=== PATIENT | male | born 1960 | race Caucasian/White ===

== ENCOUNTER → 2021-09-01 07:48 | Outpatient (CLI) | payer BC, SELFPAY ==
--- NOTE | ~2021-09-01 | XR_ITS ---
XR finger 1st RT min 2V DATE: 09/01/2021 08:14 INDICATION: Right thumb pain TECHNIQUE: 3 views COMPARISON: None FINDINGS: There is prominent osteoarthritic change at the first carpometacarpal joint. There is mild osteoarthritis at the first metacarpophalangeal joint. There is prominent osteoarthritic change at th e distal interphalangeal joint including joint space and prominent spurring. No fracture, dislocation, periosteal reaction or bone destruction is detected. IMPRESSION: Osteoarthritis at the first carpometacarpal, first metacarpophalangeal and interphalangea l joints Reviewed, dictated and finalized at location A. IMPRESSION: Osteoarthritis at the first carpometacarpal, first metacarpophalang eal and interphalangeal joints
== END ==
PROVIDERS: PCP Family Medicine; Visit Provider Physician Assistant
DX: M19.041 Primary osteoarthritis, right hand (principal)
CPT/HCPCS: 73140

== ENCOUNTER 2021-10-06 00:34 | Day surgery (SDC) | payer BC, SELFPAY ==
[2021-09-20 14:18] VITALS: BMI 24.4
[2021-10-06 08:33] VITALS: BP 108/69; PULSE 94; RESP 18; TEMP 36.3; O2SAT 99
[2021-10-06] MEDS: LACTATED RINGERS 1,000 ML 150 ML IV CONT (08:42)
--- NOTE | 2021-10-06 08:44 | WPDANESEPPF ---
Anes - Initial Pre Proc Eval Procedure: Operation Date: 10/06/21 09:30 Proposed Procedures p Screening Colonoscopy - Eloy Wagoner MD Date/Time: 10/06/21 08:44 Surgeon: Eloy Wagoner MD Pre Op Diagnosis: neoplasm screening Patient Data Age: 60 Gender: M Height: 1.75 m Weight: 72.6 kg Last Vital Signs Temp 36.3 C L 10/06/21 08:33 Pulse 94 10/06/21 08:33 Resp 18 10/06/21 08:33 BP 108/69 10/06/21 08:33 Pulse Ox 99 10/06/21 08:33 Allergies Allergy/AdvReac Type Severity Reaction Status Date / Time No Known Drug Allergies Allergy Unknown Unknown Verified 10/06/21 08:31 Home Medications Medication Instructions Recorded Confirmed Type pantoprazole 40 mg tablet,delayed 40 mg PO QAM #90 tablet 02/17/21 09/20/21 Rx release methylprednisolone 4 mg tablets in See Rx Instructions PO PER PKG DIR 09/05/21 Rx a dose pack #21 each Patient hx anesthesia problems: none Family hx anesthesia problems: none Results Review: All pre-operative results and documents have been reviewed as part of the pre-operative evaluation. [facility] Past Medical History Medical History Chronic GERD HLD (hyperlipidemia) IFG (impaired fasting glucose) Surgical History Surgical History History of carpal tunnel release Family History Family History Father Heart disease Father Family history of cardiovascular disease Social History Social History Alcohol intake: current Drinks per week: 2 Substance use: never Substance use type: does not use Living arrangements: with family Gender identity (if verbalized by the patient): Male Sexual Orientation (if Verbalized by the Patient): Straight or Heterosexual Spiritual care concerns: No Anes - Eval Final PreProcedure Day of Procedure 10/06/21 08:44 Patient weight: normal Heart: regular rate and rhythm Lungs: clear to auscultation Airway: Mallampati scale class II Neurological: alert and oriented Last oral intake: >/= 8 hours ASA classification: II Emergent: no Anesthetic plan: proceed Anesthesia type and monitoring: general GIVS and standard monitoring Results Review: All pre-operative results and documents have been reviewed as part of the pre-operative evaluation. Informed Consent: The patient's anesthetic plan and its attendant risks and benefits were discussed with the patient/family/POA. Questions were solicited and answers provided to the satisfaction of the patient/family/POA.
--- NOTE | 2021-10-06 08:56 | PM.HPGS ---
History of Present Illness History of Present Illness Consent: Risks, benefits, and alternatives have been discussed and questions answered. Patient agrees to proceed with procedure. Chief complaint: neoplasm screening Narrative: Cuco Bentley is a 60 year old male here for screening colonoscopy, last time 11 years ago. Review of Systems Constitutional: Constitutional: Denies headache(s) and Denies weakness Eyes: Eyes: Denies blurry vision ENT: Reports Normal hearing present, Denies headache(s) and Denies neck pain Cardiovascular: Cardiovascular: Denies chest pain and Denies dyspnea Respiratory: Respiratory: Denies dyspnea Gastrointestinal: Gastrointestinal: Reports no additional gastrointestinal complaints Genitourinary: Genitourinary: Denies dysuria Musculoskeletal: Musculoskeletal: Denies neck pain Integumentary/Breasts: Skin/Breast: Denies dry skin Neurologic: Reports Normal hearing present, Denies headache(s) and Denies weakness Psychiatric: Psychiatric: Denies anxiety Endocrine: Endocrine: Denies change in body appearance Hematologic/Lymphatic: Hematologic/Lymphatic: Denies easy bleeding Allergic/Immunologic: Allergic/Immunologic: Denies urticaria PMFSH Past Medical History Medical History (Updated 10/06/21 @ 08:56 by Eloy Wagoner MD) Chronic GERD Colon cancer screening HLD (hyperlipidemia) IFG (impaired fasting glucose) Surgical History Surgical History History of carpal tunnel release Family History Family History Father Heart disease Father Family history of cardiovascular disease Social History Social History Alcohol intake: current Drinks per week: 2 Substance use: never Substance use type: does not use Living arrangements: with family Gender identity (if verbalized by the patient): Male Sexual Orientation (if Verbalized by the Patient): Straight or Heterosexual Spiritual care concerns: No Meds Home Medications and Allergies Home Medications Medication Instructions Recorded Confirmed Type pantoprazole 40 mg tablet,delayed 40 mg PO QAM #90 tablet 02/17/21 09/20/21 Rx release methylprednisolone 4 mg tablets in See Rx Instructions PO PER PKG DIR 09/05/21 Rx a dose pack #21 each Allergies Allergy/AdvReac Type Severity Reaction Status Date / Time No Known Drug Allergies Allergy Unknown Unknown Verified 10/06/21 08:31 Vital Signs Vital Signs - 24 hr 10/06/21 08:33 Temperature 97.3 F L Pulse Rate 94 Respiratory Rate 18 Blood Pressure 108/69 Pulse Oximetry 99 Exam Const: General: comfortable and no acute distress HENMT: General nose exam: Normal nares present Eyes: General: appearance normal, both eyes and all related structures Neck: Neck: no JVD Resp: Auscultation: clear to auscultation bilaterally Cardio: Rate: regular rate Rhythm: regular rhythm GI: Inspection: non-distended GI Palp: Yes Soft to palpation Skin: General skin exam: normal color Neuro: General: gait normal Speech: normal speech Extrem: General: normal to inspection Psych: Mental Status: mental status grossly normal Assessment and Plan Assessment and plan (1) Colon cancer screening: Code(s): Z12.11 - Encounter for screening for malignant neoplasm of colon Status: Acute Assessment and Plan: colonoscopy
[2021-10-06 09:15] VITALS: BP 97/67; PULSE 80; RESP 19; O2SAT 97
[2021-10-06 09:25] VITALS: BP 100/64; PULSE 77; RESP 18; O2SAT 98
[2021-10-06 09:35] VITALS: BP 119/90; PULSE 83; RESP 17; O2SAT 97
== END 2021-10-06 09:44 | disposition home or self-care (01) ==
PROVIDERS: PCP Family Medicine; Visit Provider Internal Medicine Gastroenterology
PROC: 0DJD8ZZ Inspection of Lower Intestinal Tract, Via Natural or Artificial Opening Endoscopic (ICD-10-PCS; CPT 45378; principal; 2021-10-06 09:30)
DX: Z12.11 Encounter for screening for malignant neoplasm of colon (principal); D12.4 Benign neoplasm of descending colon; K64.8 Other hemorrhoids; K21.9 Gastro-esophageal reflux disease without esophagitis; E78.5 Hyperlipidemia, unspecified; R73.01 Impaired fasting glucose
CPT/HCPCS: 45385; 88305; J2704; J7120

== ENCOUNTER 2023-07-03 12:37 | Outpatient (CLI) | payer BC, SELFPAY ==
[2023-07-03 13:40] LABS: Influenza A QL RT-PCR Negative (Negative); Influenza B QL RT-PCR Negative (Negative); RSV RNA, RT-PCR Negative (Negative); SARS-CoV-2 RNA PCR Negative (Negative)
== END 2023-07-03 12:38 | disposition home or self-care (01) ==
LOC: ANHLAB 12:38
PROVIDERS: PCP Family Medicine; Visit Provider Physician Assistant
DX: R05.9 Cough, unspecified (principal); Z20.822 Contact with and (suspected) exposure to COVID-19
CPT/HCPCS: 87637

== ENCOUNTER 2024-04-24 17:08 | Outpatient (CLI) | payer BC, SELFPAY ==
[2024-04-24 17:58] LABS: Influenza A QL RT-PCR Negative (Negative); Influenza B QL RT-PCR Negative (Negative); RSV RNA, RT-PCR Negative (Negative); SARS-CoV-2 RNA PCR Positive (Negative)
== END 2024-04-24 17:09 | disposition home or self-care (01) ==
LOC: ANHLAB 17:10
PROVIDERS: PCP Family Medicine; Visit Provider Physician Assistant
DX: R05.9 Cough, unspecified (principal); R09.81 Nasal congestion; Z20.822 Contact with and (suspected) exposure to COVID-19
CPT/HCPCS: 87637

== ENCOUNTER 2024-10-28 13:24 | Outpatient (CLI) | payer BC, SELFPAY ==
--- NOTE | ~2024-10-28 | US_ITS ---
EXAMINATION: US carotid duplex BI DATE: 10/28/2024 13:54 CDT INDICATION: Dizziness TECHNIQUE: Grayscale, color Doppler, and pulsed Doppler images of the cervical carotid arteries were obtained. The degree of vessel stenosis is placed in one of the following categories: normal, <50%, 50-69%, >=7 0% but less than near-occlusion, near-occlusion, or total occlusion. Note that percent stenosis relative to normal distal artery lumen diameter is indirectly measured fro m velocity measurements as described originally by Alfred, et al. Radiology 2003; 229:340-346 and upda claudia by Mason Han et al STROKE 2012;43(3);915-921. COMPARISON: None. FINDINGS: There is mild atherosclerosis of both carotid arteries. Peak systolic velocity (in cm/s) is detailed below RIGHT: Right common carotid artery (CCA): 84 cm/s. Right internal carotid artery (ICA) PSV: 76 cm/s. Right ICA end-diastolic velocity (EDV): 36 cm/s. Right ICA/CCA PSV ratio is 0.9. Right external carotid artery (ECA): 76cm/s. There is antegrade flow in the right vertebral artery LEFT: Left common carotid artery (CCA): 88 cm/s. Left internal carotid artery (ICA) PSV: 89 cm/s. Left ICA end-diastolic velocity (EDV): 42 cm/s. Left ICA/CCA PSV ratio is 1.0. Left external carotid artery (ECA): 61cm/s. There is antegrade flow in the left vertebral artery. IMPRESSION: 1. Less than 50% stenosis in the right internal carotid artery. 2. Less than 50% stenosis in the left internal carotid artery. Reviewed, dictated and finalized at location A.
--- OUTSIDE RECORDS SUMMARY | 2024-10-28 13:30 | XMS_ITS | Clinical Summary ---
Author Organization [facility] Address [address] [place] [address] Care Team Providers Care Clinical Assistant Name Role Phone Unavailable Primary Care Provider Unavailabl e Encounters Date Type Department Care Team Description 09/08/2024 External Device Data [facility] ABSTRACTION Provider, Abstract 09/08/2024 External Device Data [facility] ABSTRACTION Provider, Abstract 09/08/2024 External Device Data [facility] ABSTRACTION Provider, Abstract 09/02/2024 10:00 AM CDT Ancillary Procedure [facility] [address] [place] [id number] Michael Carlton MD Asbestosis (CMS/HCC) from Last 3 Months Social History Tobacco Use Types Packs/Day Years Used Date Smoking Tobacco: Never Assessed Sex and Gender Information Value Date Recorded Sex Assigned at Not on file Legal Sex Male 10:36 AM CDT Gender Identity Not on file Sexual Orientation Not on file Plan of Treatment Health Maintenance Due Date Last Done Comments DTAP/TDAP/TD VACCINES (1 - Tdap) 12/19/1978 COLORECTAL SCREENING 12/19/2004 Colorectal Cancer Screening 12/19/2004 FIT-DNA Q 3 years 12/19/2004 FIT/FOBT Q 1 year 12/19/2004 Flex Sig/CT Colonography Q 5 years 12/19/2004 ZOSTER VACCINE (1 of 2) 12/19/2009 INFLUENZA VACCINE (#1) 2024 COVID-19 Vaccine (2 - season) 02/02/202404/2021 RSV VACCINE (60+ or ) (1 - 1-dose 75+ series) 12/19/2034 Procedures Procedure Name Priority Date/Time Associated Diagnosis Comments XR CHEST PA AND LATERAL 2 VW Routine 09/02/2024 11:03 AM CDT Asbestosis (CMS/HCC) from Last 3 Months Results * XR CHEST PA AND LATERAL 2 VW (09/02/2024 11:03 AM CDT) Anatomical Region Laterality Modality Chest Computed Radiogr aphy 09/02/2024 11:0 3 AM CDT Impressions 09/02/2024 11:32 AM CDT IMPRESSION: No active disease. Narrative 09/02/2024 11:32 AM CDT INDICATION: Asbestos exposure. There are mild degenerative changes throughout the thoracic spine. The heart is normal in size. No aortic vascular calcification is evident. The lung maciel are clear. There is no evidence of pleural fluid or thickening. Procedure Note Demario Russ MD - 09/02/2024 INDICATION: Asbestos exposure. There are mild degenerative changes throughout the thoracic spine. The heart is normal in size. No aortic vascular calcification is evident. The lung maciel are clear. There is no evidence of pleural fluid or thickening. IMPRESSION: No active disease. us Michael Carlton MD DIAGNOSTIC IMAGING ORD ERABLES Final Result from Last 3 Months
--- OUTSIDE RECORDS SUMMARY | 2024-10-28 13:30 | XMS_ITS | Clinical Summary ---
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 Gender Identity Not on file Sexual Orientation Not on file Plan of Treatment Health Maintenance Due Date Last Done Comments Hepatitis C Virus (HCV) Screening 1960 TdaP Immunization 1960 Colonoscopy 12/19/2004 Colorectal Cancer Screening 12/19/2004 Cologuard 12/19/2009 Immunochemical Fecal Occult Blood 12/19/2009 Pneumococcal Immunization (5 0+ years) (1 of 1 - PCV) 12/19/2009 Zoster Immunization (1 of 2) 12/19/2009 PSA Discussion 12/19/2014 Influenza Immunization (#1) 2024 SARS-COV-2 Immunization ( - season) 2024 Respiratory Syncytial Virus (RSV) Immunization (Adult) (1 - 1-dose 75+ series) 12/19/2034 Hepatitis B Immunization Aged Out No longer eligible based on patient's age to complete this topic Meningococcal Immunization (ACWY) Aged Out No longer eligible based on patient's age to complete this topic Pneumococcal Immunization Combined Aged Out No longer eligible based on patient's age to complete this topic Rotavirus Immunization Aged Out No lo nger eligible based on patient's age to complete this topic
--- OUTSIDE RECORDS SUMMARY | 2024-10-28 13:30 | XMS_ITS | Referral Summary ---
Author Organization [facility] Address [address] [place] [address] Care Team Providers Care Partridge Farmer Name Role Phone Reynold Nelson MD Primary Care Provider Allergies No known active allergies Medications pantoprazole DR (PROTONIX) 40 mg EC tablet 2 09/27/2018 Active Active Problems Problem Noted Date Diagnosed Date Primary osteoarthritis of both hands 05/29/2019 Immunizations Immunization Administration Dates Next Due Pfizer SARS-CoV-2 Monovalent Vaccination (12+ Yrs) PURPLE 07/14/2020 Social History Tobacco Use Types Packs/Day Years Used Date Smoking Tobacco: Never Smokeless Tobacco: Never Tobacco Cessation:Counseling Given: Not Answered Alcohol Use Standard Drinks/Week Comments Yes 0 (1 standard drink = 0.6 oz pur e alcohol) Sex and Gender Information Value Date Recorded Sex Assigned at Not on file 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 Gender Identity Not on file Sexual Orientation Not on file Last Filed Vital Signs Vital Sign Reading Time Taken Comments Blood Pressure - - Pulse - - Temperature 35.4 C (95.7 F) 12/17/2019 10:34 AM CDT Respiratory Rate 18 03/15/2022 8:02 AM CDT Oxygen Saturation - - Inhaled Oxygen Concentration - - Weight 74.8 kg (165 lb) 04/20/2024 9:57 AM MANAGER UTILITIES Height 175.3 cm (5' 9) 04/20/2024 9:57 AM MANAGER UTILITIES Body Mass Index 24.37 04/20/2024 9:57 AM MANAGER UTILITIES Plan of Treatment Not on file Insurance GERS [place] G[place] Care Teams Partridge Farmer Relationship Specialty Start Date End Date Reynold Nelson MD [address] [facility] [address] [place] [address] PCP - General Family Medicine 03/12/22
--- OUTSIDE RECORDS SUMMARY | 2024-10-28 13:30 | XMS_ITS | Clinical Summary ---
Author Organization [facility] Address [address] [place] [address] Care Team Providers Care Pile Operator Name Role Phone Reynold Nelson MD Primary Care Provider Allergies No known active allergies Medications pantoprazole DR (PROTONIX) 40 mg EC tablet 2 09/27/2018 Active Active Problems Problem Noted Date Diagnosed Date Primary osteoarthritis of both hands 05/29/2019 Immunizations Immunization Administration Dates Next Due Pfizer SARS-CoV-2 Monovalent Vaccination (12+ Yrs) PURPLE 07/14/2020 Surgical History Surgery Date Site/Laterality Comments ROTATOR CUFF REPAIR CARPAL TUNNEL RELEASE Medical History Medical History Date Comments GERD (gastroesophageal reflux disease) Family History Medical History Relation Name Comments No Known Problems Father No Known Problems Mother Relation Name Status Comments Father Mother Social History Tobacco Use Types Packs/Day Years Used Date Smoking Tobacco: Never Smokeless Tobacco: Never Tobacco Cessation:Counseling Given: Not Answered Alcohol Use Standard Drinks/Week Comments Yes 0 (1 standard drink = 0.6 oz pur e alcohol) Sex and Gender Information Value Date Recorded Sex Assigned at Not on file 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 Gender Identity Not on file Sexual Orientation Not on file Obstetrics History Last Filed Vital Signs Vital Sign Reading Time Taken Comments Blood Pressure - - Pulse - - Temperature 35.4 C (95.7 F) 12/17/2019 10:34 AM CDT Respiratory Rate 18 03/15/2022 8:02 AM CDT Oxygen Saturation - - Inhaled Oxygen Concentration - - Weight 74.8 kg (165 lb) 04/20/2024 9:57 AM 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 Height 175.3 cm (5' 9) 04/20/2024 9:57 AM 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 Body Mass Index 24.37 04/20/2024 9:57 AM 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 Plan of Treatment Health Maintenance Due Date Last Done Comments Colon Cancer Screening-Colonoscopy 1960 Depression Screening 1960 Hepatitis C Screening 1960 Prostate Cancer Screening-PSA 1959 DTaP/Tdap/Td Vaccine (1 - Tdap) 12/19/1970 Hepatitis B Screening 12/19/1977 Regular Well Visit/Exam 18-64 12/19/1977 Zoster Vaccine (1 of 2) 12/19/2009 Covid-19 Vaccine (2 - 2023-2 5 season) 2024 07/14/2020 Influenza Vaccine (Season Ended) 2025 Pneumococcal vaccine <65 Aged Out No longer eligible based on patient's age to complete this topic Insurance Grability DC [facility] Care Teams Pile Operator Relationship Specialty Start Date End Date Reynold Nelson MD [address] [facility] [address] [place] [address] PCP - General Family Medicine 03/12/22
== END 2024-10-28 13:25 | disposition home or self-care (01) ==
PROVIDERS: PCP Family Medicine
DX: R42 Dizziness and giddiness (principal); I10 Essential (primary) hypertension; E78.5 Hyperlipidemia, unspecified; I65.23 Occlusion and stenosis of bilateral carotid arteries
CPT/HCPCS: 93880

== ENCOUNTER 2024-11-29 02:05 | Emergency (ER) | payer BC, SELFPAY ==
[2024-11-29] VITALS (11 sets, daily range): BP systolic 132–139; BP diastolic 89–93; PULSE 74–90; RESP 12–18; TEMP 36.5–36.8; O2SAT 98–100
--- NOTE | ~2024-11-29 | CT_ITS ---
CT of the Abdomen and Pelvis: Indication: GI bleed Technique: 2.5 mm axial scans were obtained through the abdomen and pelvis following intravenous adm inistration of 100 cc of Omnipaque 350. Dose reduction technique was used on this scan by utilizing a utomated exposure control and iterative reconstruction technique. The dose-length product (DLP) was 2 87.41 mGy-cm. Findings: Scans through the lung bases are unremarkable. The liver, spleen, pancreas, gallbladder, adrenals and kidneys are within normal limits. No evidence of aortic aneurysm. No lymphadenopathy. There is long segment wall thickening from the mid descending colon to mid sigmoid colon with mild pe ricolonic inflammatory stranding. No bowel obstruction. No abscess or free air. Images through the pelvis were performed. Urinary bladder unremarkable. No pelvic mass seen. No ascit es. Impression: Findings most compatible with infectious/inflammatory colitis extending from the mid descending colon extending to the mid sigmoid colon. Reviewed, dictated and finalized at [facility]. Impression: Findings most compatible with infectious/inflammatory colitis extending from th e mid descending colon extending to the mid sigmoid colon.
[2024-11-29 04:23] LABS: Basophils Absolute Auto 0.1 K/mm3 (0.0-0.1); Basophils Percent Auto 0.7 % (0.2-1.2); Eosinophils Absolute Auto 0.4 K/mm3 (0-0.3); Eosinophils Percent Auto 2.9 % (0-4.4); Hematocrit 41.7 % (42.0-52.0); Hemoglobin 14.4 g/dL (14.0-18.0); Immature Granulocyte Absolute 0.04 K/mm3 (0.00-0.031); Immature Granulocyte Percent A 0.3 % (0-0.5); Lymphocytes Absolute Auto 2.03 K/mm3 (0.9-3.2); Lymphocytes Percent Auto 16.8 % (18.3-44.2); Mean Corpuscular HGB Conc 34.5 g/dl (32-36); Mean Corpuscular Volume 89.7 fl (80-100); Mean Platelet Volume 9.3 fl (7.4-10.4); Monocytes Absolute Auto 0.9 K/mm3 (0.1-0.6); Monocytes Percent Auto 7.2 % (2.6-8.5); Neutrophils Absolute Auto 8.7 K/mm3 (1.3-6.7); Neutrophils Percent Auto 72.1 % (45.5-73.1); Platelet Count Result 272 k/mm3 (150-375); Red Blood Count 4.65 M/mm3 (4.6-6.20); Red Cell Distribution Width 13.2 % (11.5-14.5); White Blood Count 12.1 K/mm3 (4.5-10.0)
[2024-11-29 04:36] LABS: Alanine Aminotransferase 16 U/L (6-50); Albumin Level 4.2 g/dL (3.5-5.1); Alkaline Phosphatase 66 U/L (38-126); Anion Gap 7 mmol/L (4-12); Aspartate Amino Transferase 24 U/L (17-59); Bilirubin,Total 1.2 mg/dL (0.2-1.3); Blood Urea Nitrogen 15 mg/dL (9-20); Calcium 9.1 mg/dL (8.4-10.2); Carbon Dioxide 23 mmol/L (22-30); Chloride 105 mmol/L (98-107); Estimated CRCL calculation 95 ml/min; Estimated Glomerular Filt Rate > 60; Glucose 111 mg/dL (65-110); Potassium 3.4 mmol/L (3.4-5.0); Sodium 135 mmol/L (137-145); Total Protein 6.9 g/dL (6.3-8.2)
[2024-11-29 04:41] LABS: Partial Thromboplastin Time 28.9 Seconds (22.3-36.8); Prothrombin Time 13.2 Seconds (11.1-14.7)
--- NOTE | 2024-11-29 05:33 | ED_ITS ---
HPI - GI Bleed General Chief complaint: GI Bleed Stated complaint: ABD PAIN,BLOODY STOOLS Time Seen by Provider: 11/29/24 04:19 Source: patient and family () Mode of arrival: ambulatory Limitations: no limitations History of Present Illness HPI Narrative: Patient presents with report of left-sided abdominal pain and bloody stools. He thinks perhaps he had food poisoning as Saturday night both he and his who had eaten same food experienced abdominal cramping and loose stools. However, his were bloody, with blood noted in the toilet bowl as well as mixed in with the stool. He believes he has had 15-20 of these episodes. They are associated with pain in the left lower quadrant. He had emesis followed by nausea but does not feel nauseated now. He states he has had episodes with abdominal pain and cramping before but never with bloody stool. He has previously had a colonoscopy he and his last 1 was a few years ago. Other than a polyp removal it was performed here in reported as normal with Dr. Sunil hallman. He states his pain is 4/10 in severity and intermittent. He is not on anticoagulation, steroids, or NSAIDs. He has taken Tylenol once for pain. Related Data Allergies Allergy/AdvReac Type Severity Reaction Status Date / Time No Known Drug Allergies Allergy Unknown Unknown Verified 11/29/24 04:09 [facility] Past Medical History Medical History Colon cancer screening IFG (impaired fasting glucose) HLD (hyperlipidemia) Chronic GERD Surgical History Surgical History History of colonoscopy 10/06/2021, Dr Sunil Perales History of carpal tunnel release Family History Family History Father Heart disease Father Family history of cardiovascular disease Social History Social History Smoking status: Never smoker Alcohol intake: current Drinks per week: 2 Substance use: never Substance use type: does not use Living arrangements: with family Additional living arrangements comments: Occupation/Education: occupation Additional occupation/education comments: Employed Gender identity (if verbalized by the patient): Male Sexual Orientation (if Verbalized by the Patient): Straight or Heterosexual Spiritual care concerns: No Exam 2 Narrative: GENERAL: Well-appearing, well-nourished, and in no acute distress. HEAD: Normocephalic, atraumatic. EYES: Non injected, non icteric ENT: Nares clear, no rhinorrhea or epistaxis. Gross auditory acuity intact. NECK: Supple. No meningismus. CHEST: Speaking in full sentences. No respiratory distress. HEART: Regular rate and rhythm. . ABDOMEN: Soft, nondistended. No tenderness to palpation throughout. No rigidity or guarding. Not peritoneal. JUAN A performed with present in room. No external hemorrhoids. Normal rectal sphincter tone. No stool on gloved finger. FOBT/guiaic negativ.e EXTREMITIES: Normal range of motion. No lower extremity edema. SKIN: Warm, dry, no rash. NEURO: No focal deficits. Alert and oriented. Answering questions. Following commands. Normal speech without aphasia or dysarthria. PSYCH: Normal mood and affect. Course Vital Signs Vital signs: Vital Signs Temperature 98.2 F 11/29/24 02:06 Pulse Rate 90 11/29/24 02:06 Respiratory Rate 16 11/29/24 02:06 Blood Pressure 139/90 11/29/24 02:06 Pulse Oximetry 99 11/29/24 02:06 Temperature 97.7 F 11/29/24 04:06 Pulse Rate 84 11/29/24 07:55 Respiratory Rate 18 11/29/24 07:55 Blood Pressure 132/89 11/29/24 07:55 Pulse Oximetry 100 11/29/24 07:55 Oxygen Delivery Room Air 11/29/24 04:06 MDM - GI Bleed MDM Narrative Medical decision making narrative: The patient is a 63 year old who comes to the emergency department with blood in toilet bowl and hematochezia that started Saturday. Associated with abdominal pain. In the ED they are initially afebrile and hemodynamically stable without tachycardia or hypotension. Based on history and physical, suspect lower GI bleed so will go ahead and order CBC, CMP, coagulation studies, lactate, and type and screen. My differential diagnosis at this time is: IBD/infectious diarrhea/colitis/diverticulitis. Considered diverticulosis versus angiodysplasia versus Meckel's diverticulum. Colon cancer is also possible. Considered ischemic bowel ; less likely anal fissure Possibly hemorrhoids. Beaver Score (predicts readmission risk in patients with acute lower GI bleeding) Based on age, sex, previous lower GI bleed admission, JUAN A findings, HR, SBP, and initial Hgb: 10?points Beaver Score 91?% Probability of safe discharge (absence of rebleeding, blood transfusion, therapeutic intervention, 28 day readmission, or ). Discharge NOT recommended. Consider admission with further workup and resuscitation as necessary. Leukocytosis, not frankly anemic. 4 hour H/H ordered. CT with inflammatory colitis. Repeat H/H shows a 0.7g drop. We discussed patient's workup. There was no hematochezia on rectal exam and patient states since being in the emergency department for several hours he has had no recurrence of symptoms other than bowel movement before my physical exam including JUAN A. His pain is well controlled. We discussed the possibility of admission given his borderline status on Beaver score. However, patient feels comfortable with being discharged with strict ED return precautions and this is also very reasonable especially given his age and he has remained hemodynamically stable w/o recurrence of symptoms for several hours. Patient given Bentyl and a prescription for the same. We discussed that antibiotics are occasionally indicated for colitis but not always. His lactic acid was normal but he did have a slight leukocytosis. We discussed deferring antibiotics initially but that patient will be prescribed them. He will trial without antibiotics for 24-48 hours but will fill the prescription if symptoms persist. We also discussed strict emergency department return precautions any verifies understanding. 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 Lab Data Attestation: I reviewed the patient's lab results. 11/29/24 07:14 11/29/24 04:12 Labs: Lab Results 11/29/24 11/29/24 11/29/24 Range/Units 04:12 05:33 07:14 WBC 12.1 H (4.5-10.0) K/mm3 RBC 4.65 (4.6-6.20) M/mm3 Hgb 14.4 13.7 L (14.0-18.0) g/dL Hct 41.7 L 40.4 L (42.0-52.0) % MCV 89.7 (80-100) fl MCH 31.0 (26-34) pg MCHC 34.5 (32-36) g/dl RDW 13.2 (11.5-14.5) % Plt Count 272 (150-375) k/mm3 MPV 9.3 (7.4-10.4) fl Immature Gran % (Auto) 0.3 (0-0.5) % Neut % (Auto) 72.1 (45.5-73.1) % Lymph % (Auto) 16.8 L (18.3-44.2) % Noble % (Auto) 7.2 (2.6-8.5) % Eos % (Auto) 2.9 (0-4.4) % Baso % (Auto) 0.7 (0.2-1.2) % Lymph # (Auto) 2.03 (0.9-3.2) K/mm3 Noble # (Auto) 0.9 H (0.1-0.6) K/mm3 Eos # (Auto) 0.4 H (0-0.3) K/mm3 Baso # (Auto) 0.1 (0.0-0.1) K/mm3 Abs Immat Gran (auto) 0.04 H (0.00-0.031) K/mm3 Absolute Neuts (auto) 8.7 H (1.3-6.7) K/mm3 Absolute Nucleated RBC 0.000 (0.0-0.012) K/mm3 Nucleated RBC % 0.0 (0.0-0.2) % PT 13.2 (11.1-14.7) Seconds INR 1.0 APTT 28.9 (22.3-36.8) Seconds Sodium 135 L (137-145) mmol/L Potassium 3.4 (3.4-5.0) mmol/L Chloride 105 (98-107) mmol/L Carbon Dioxide 23 (22-30) mmol/L Anion Gap 7 (4-12) mmol/L BUN 15 (9-20) mg/dL Creatinine 0.69 L (0.7-1.3) mg/dL Estim Creat Clear Calc 95 ml/min Estimated GFR > 60 (59 - ) Glucose 111 H (65-110) mg/dL Lactic Acid 0.6 L (0.7-2.0) mmol/L Calcium 9.1 (8.4-10.2) mg/dL Total Bilirubin 1.2 (0.2-1.3) mg/dL AST 24 (17-59) U/L ALT 16 (6-50) U/L Alkaline Phosphatase 66 (38-126) U/L Total Protein 6.9 (6.3-8.2) g/dL Albumin 4.2 (3.5-5.1) g/dL Urine Color Dark yellow (Yellow) Urine Appearance Clear (Clear) Urine pH 6.5 (5.0-9.0) Ur Specific [place] 1.028 (1.001-1.035) Urine Protein 1+ H (Negative) mg/dL Urine Glucose (UA) Negative (Negative) mg/dL Urine Ketones Trace H (Negative) mg/dL Ur Blood (Man) Negative (Negative) Urine Nitrate Negative (Negative) Urine Bilirubin Negative (Negative) Urine Urobilinogen 1.0 (<2.0) mg/dL Add Ur Microanalysis Reviewed Leukocyte Esterase Rfl Trace H (Negative) ROCIO/UL Urine RBC 0-2 (0-2) /hpf Urine WBC 0-5 (0-3) /hpf Ur Squamous Epith Cells None seen (Few) /hpf Urine Bacteria None seen /hpf Urine Casts 0-2 Urine Mucus Present /lpf Blood Type O Negative Antibody Screen Negative Imaging Data Radiologist's impression: Impressions Abdomen/Pelvis CTA 11/29/24 06:44 Impression: Findings most compatible with infectious/inflammatory colitis extending from the mid descending colon extending to the mid sigmoid colon. Discharge Plan Discharge Clinical Impression: Leukocytosis, Normocytic anemia, Hematochezia, Colitis Patient Disposition: Home Condition: Stable Instructions: Antibiotic Form, Colitis (ED) Additional Instructions: As we discussed, trial the Bentyl/dicyclomine for the abdominal cramping you experience. If symptoms are not improving over the next 24-48 hours, you can feel the prescriptions for antibiotics. Follow-up with your PCP and gastroenterology. Return to the emergency department with any new or worsening or unmanaged symptoms. Patient Language: Cypriot Prescriptions: New dicyclomine 10 mg capsule 10 mg PO BID PRN (Reason: abdominal pain) Qty: 20 0RF ciprofloxacin HCl [Cipro] 500 mg tablet 500 mg PO Q12H PRN (Reason: gi bleeding ) 5 Days Qty: 10 0RF metronidazole 500 mg tablet 500 mg PO QID PRN (Reason: GI bleeding) 5 Days Qty: 20 0RF No Action triamcinolone acetonide 0.1 % lotion 1 applic topical BID Qty: 60 0RF Rx Instructions: Apply to affected area twice daily for no more than 1-2 weeks,then stop pantoprazole 40 mg tablet,delayed release (DR/EC) 40 mg PO QAM Qty: 90 2RF lisinopril 2.5 mg tablet See Rx Instructions .ROUTE .COMPLEX Qty: 90 0RF Dose Instruction: TAKE 1 TABLET BY MOUTH DAILY Rx Instructions: TAKE 1 TABLET BY MOUTH DAILY Follow-up/Referrals: Reynold Nelson MD [Primary Care Provider] - Eloy Wagoner MD [Physician] - Stand Alone Forms: Work/School Release IP Time of Disposition: 08:02
[2024-11-29] MEDS: MORPHINE SULFATE (*CRX) 4 MG/ML INJ IV PUSH (06:01)
[2024-11-29 06:16] LABS: Add Urine Microscopic? YES; Appearance Urine Clear (Clear); Bacteria Urine None Seen /hpf; Bilirubin Urine Negative (Negative); Blood Urine Negative (Negative); Color Urine Dark Yellow (Yellow); Glucose Urine UA Negative (Negative); Ketones Urine Trace mg/dL (Negative); Leukocyte Esterase Ur Trace LEU/UL (Negative); Mucus Urine Present /lpf; Need Manual Microscopic Reviewed; Nitrate Urine Negative (Negative); Non Pathogenic Casts 0-2; Protein Urine 1+ mg/dL (Negative); RBC Urine 0-2 /hpf (0-2); Specific Grav Ur 1.028 (1.001-1.035); Squamous Epithelial Cell Urine None Seen /hpf (Few); WBC Urine 0-5 /hpf (0-3); pH Urine 6.5 (5.0-9.0)
[2024-11-29 07:23] LABS: Hematocrit 40.4 % (42.0-52.0); Hemoglobin 13.7 g/dL (14.0-18.0)
[2024-11-29 07:37] LABS: Lactic Acid Reflex 0.6 mmol/L (0.7-2.0)
[2024-11-29] MEDS: DICYCLOMINE HCL 10 MG CAPSULE PO (07:54)
== END 2024-11-29 08:11 | disposition home or self-care (01) ==
PROVIDERS: Emergency Provider Student in an Organized Health Care Education/Training Program; PCP Family Medicine
DX: K52.9 Noninfective gastroenteritis and colitis, unspecified (principal); D64.9 Anemia, unspecified; D72.829 Elevated white blood cell count, unspecified; E78.5 Hyperlipidemia, unspecified; K21.9 Gastro-esophageal reflux disease without esophagitis; K92.1 Melena
CPT/HCPCS: 36415; 74174; 80053; 81001; 83605; 85014; 85018; 85025; 85610; 85730; 86850; 86900; 86901; 96374; 99284; A9270; J2270; Q9967